=== PATIENT | female | born 1970 | race Caucasian/White ===

== ENCOUNTER → 2019-04-18 | Outpatient (REF) | payer MEDICAID | LOC: M LAB REF 17:27 | PROVIDERS: ATTEND Nurse Practitioner Family | DX: Z53.9 Procedure and treatment not carried out, unspecified reason (principal) ==

== ENCOUNTER → 2019-04-22 | Outpatient (REF) | payer MEDICAID ==
[2019-04-22 17:15] LABS: ALBUMIN 3.3 GM/DL (3.2-5.2); ALT/SGPT 42 U/L (12-78); BILIRUBIN,TOTAL 0.4 MG/DL (0.2-1.0); BLOOD UREA NITROGEN 7 MG/DL (7-18); CALCIUM LEVEL 8.7 MG/DL (8.5-10.1); CARBON DIOXIDE LEVEL 29 MEQ/L (21-32); CHLORIDE LEVEL 104 MEQ/L (98-107); CHOLESTEROL LEVEL 181 MG/DL (<200); CHOLESTEROL RISK RATIO 5.838 (<5); CREATININE FOR GFR 0.68 MG/DL (0.55-1.30); FREE T4 1.19 NG/DL (0.76-1.46); GLOMERULAR FILTRATION RATE > 60.0 (>58); GLUCOSE, FASTING 268 MG/DL (70-100); HDL CHOLESTEROL 31 MG/DL (>40); LDL CHOLESTEROL 114 MG/DL (<100); NON-HDL-C 150 MG/DL; SODIUM LEVEL 138 MEQ/L (136-145); TOTAL PROTEIN 7.5 GM/DL (6.4-8.2); TRIGLYCERIDES LEVEL 180 MG/DL (<150)
[2019-04-22 17:18] LABS: TOTAL 25(OH) VITAMIN D 8.9 NG/ML (30.0-100.0)
[2019-04-22 17:28] LABS: HEMOGLOBIN A1c 9.9 %
[2019-04-22 17:37] LABS: BASO # 0.1 10^3/uL (0.0-0.2); BASO % 0.7 % (0.0-1.0); HEMATOCRIT 40.8 % (36.0-47.0); HEMOGLOBIN 11.8 g/dl (12.0-15.5); LYMPH % 20.2 % (24.0-44.0); MEAN CORPUSCULAR HEMOGLOBIN 23.1 pg (27.0-33.0); MEAN CORPUSCULAR HGB CONC 28.9 g/dl (32.0-36.5); MONO # 0.4 10^3/uL (0.0-0.8); MONO % 4.4 % (0.0-5.0); NEUTROPHILS # 7.3 10^3/uL (1.5-8.5); NEUTROPHILS % 74.2 % (36.0-66.0); PLATELET COUNT, AUTOMATED 243 10^3/uL (150-450); WHITE BLOOD COUNT 9.8 10^3/uL (4.0-10.0)
== END ==
LOC: M LAB REF 16:23
PROVIDERS: ATTEND Nurse Practitioner Family
DX: Z13.9 Encounter for screening, unspecified (principal); I10 Essential (primary) hypertension; E11.9 Type 2 diabetes mellitus without complications

== ENCOUNTER 2019-04-30 19:25 | Emergency (ER) | payer MEDICAID ==
[~2019-04-30] VITALS: Ht 160 cm; Wt 122.7 kg
[2019-04-30] MEDS ORDERED: AMLO10CA22 PO (19:33)
[2019-04-30] MEDS ORDERED: METO37.5 PO (19:33)
[2019-04-30] MEDS ORDERED: ISOS30TAB PO (19:33)
[2019-04-30] MEDS ORDERED: SPIR50TA4 PO (19:33)
[2019-04-30] MEDS ORDERED: ASPI-1 PO (19:33)
[2019-04-30] MEDS ORDERED: METF10004 PO (19:33)
[2019-04-30] MEDS ORDERED: NS 1,000 ML IV ONE (20:00)
[2019-04-30] MEDS ORDERED: ONDANSETRON 4MG/2ML VIAL (J2405) As Ordered ONE (20:12)
[2019-04-30] MEDS ORDERED: ONDANSETRON 4MG/2ML VIAL (J2405) IV ONE (20:15)
[2019-04-30 20:33] LABS: BASO % 0.7 % (0.0-1.0); HEMATOCRIT 40.3 % (36.0-47.0); HEMOGLOBIN 12.3 g/dl (12.0-15.5); LYMPH # 0.6 10^3/uL (1.5-5.0); LYMPH % 11.1 % (24.0-44.0); MEAN CORPUSCULAR HEMOGLOBIN 23.4 pg (27.0-33.0); MEAN CORPUSCULAR HGB CONC 30.5 g/dl (32.0-36.5); MEAN CORPUSCULAR VOLUME 76.6 fl (80.0-96.0); MONO # 0.2 10^3/uL (0.0-0.8); MONO % 3.7 % (0.0-5.0); NEUTROPHILS # 4.7 10^3/uL (1.5-8.5); NEUTROPHILS % 82.7 % (36.0-66.0); PLATELET COUNT, AUTOMATED 178 10^3/uL (150-450); RED BLOOD COUNT 5.26 10^6/uL (4.00-5.40); WHITE BLOOD COUNT 5.7 10^3/uL (4.0-10.0)
[2019-04-30 20:57] LABS: ALBUMIN 3.1 GM/DL (3.2-5.2); ALT/SGPT 47 U/L (12-78); BILIRUBIN,DIRECT 0.2 MG/DL (0.0-0.2); BILIRUBIN,TOTAL 0.7 MG/DL (0.2-1.0); BLOOD UREA NITROGEN 12 MG/DL (7-18); CALCIUM LEVEL 8.5 MG/DL (8.5-10.1); CARBON DIOXIDE LEVEL 27 MEQ/L (21-32); CHLORIDE LEVEL 98 MEQ/L (98-107); CREATININE FOR GFR 0.84 MG/DL (0.55-1.30); GLOMERULAR FILTRATION RATE > 60.0 (>58); GLUCOSE, FASTING 313 MG/DL (70-100); LIPASE 139 U/L (73-393); POTASSIUM SERUM 3.4 MEQ/L (3.5-5.1); SODIUM LEVEL 134 MEQ/L (136-145); TOTAL PROTEIN 6.9 GM/DL (6.4-8.2)
[2019-04-30] MEDS ORDERED: ISOVUE-370 76% 100ML VIAL (Q9967) As Ordered ONE (20:59)
[2019-04-30] MEDS ORDERED: DICYCLOMINE 10 MG CAP PO ONE (21:00)
[2019-04-30] MEDS ORDERED: KETOROLAC 30 MG/ML VIAL (J1885) IV ONE (22:00)
[2019-04-30] MEDS ORDERED: diphenhydrAMINE INJ 50MG/ML VIAL (J1200) IV STA (22:49)
[2019-04-30] MEDS ORDERED: METOCLOPRAMIDE INJ 10MG/2ML VIAL (J2765) IV ONE (23:00)
[2019-04-30] MEDS ORDERED: MORPHINE 4 MG/ML 1ML VIAL/SYRINGE (J2270) IV ONE (23:00)
[2019-04-30] MEDS ORDERED: MACR100C43 PO (23:45)
[2019-05-01] VITALS: BP 138/82
[2019-05-01] MEDS ORDERED: NITROFURANTOIN (MACROBID) 100 MG CAP PO ONE
[2019-05-01] MEDS ORDERED: ACETAMINOPHEN 325 MG TAB PO ONE
--- NOTE | 2019-05-01 08:41 | REP ---
Clinical: Lower abdominal pain. Technique: Axial contrast enhanced images from the lung bases to the pubic symphysis using 100 ml Isovue 370 intravenous contrast material with coronal and sagittal re-formations. Findings: Lung bases are clear. Visualized heart and pericardium normal. Diffuse fatty infiltration to the liver noted without focal hepatic lesion. Spleen, pancreas, right adrenal gland and left kidney are essentially normal. Cholelithiasis noted. 1.6 cm left adrenal nodule is nonspecific by current examination. 2 cm hypodense lesion in the right renal pelvis may reflect dilated wilfredo or complex cyst/lesion. The enteric system is without obstruction or acute inflammatory process. Normal terminal ileum and appendix are identified in the right lower quadrant. Few sigmoid diverticula noted without acute diverticulitis. Pelvis demonstrates normal bladder and age-appropriate uterus/adnexa with bilateral ovarian cysts likely physiologic. No ascites. No free air. No adenopathy. Abdominal aorta without aneurysm or dissection. 2 cm periumbilical fat-containing hernia noted. Musculoskeletal structures demonstrate degenerative changes without significant focal osseous abnormality. Impression: 1. Cystic changes to the bilateral ovaries likely physiologic and possibly related to patient's symptoms. 2. 1.6 cm left adrenal nodule may represent atypical adenoma. Consider outpatient pre and postcontrast CT of the abdomen or MRI. 3. 2 cm hypodense lesion within the right kidney likely complex cyst may be evaluated by outpatient ultrasound. 4. Few scattered colonic diverticula without acute diverticulitis. 5. 2 cm fat containing periumbilical hernia. 6. Cholelithiasis. 7. Hepatic steatosis. Electronically Signed by Leonardo Lua MD 05/01/2019 08:34 A
--- NOTE | 2019-05-02 13:43 | ED PDOC ---
Post-Departure Follow-Up lydia valdez faxed formal report of ct abd/p for fu samg Jarek Stone MD May 02, 2019 13:43
== END 2019-05-01 00:10 | disposition home or self-care (01) ==
LOC: M ED 19:25
DX: R51 Headache (principal); N93.9 Abnormal uterine and vaginal bleeding, unspecified; N39.0 Urinary tract infection, site not specified; E11.9 Type 2 diabetes mellitus without complications; I10 Essential (primary) hypertension; E78.9 Disorder of lipoprotein metabolism, unspecified; I25.2 Old myocardial infarction; E66.8 Other obesity; Z79.899 Other long term (current) drug therapy; Z79.84 Long term (current) use of oral hypoglycemic drugs; Z79.82 Long term (current) use of aspirin
CPT/HCPCS: 36415; 74177; 80048; 80076; 81001; 83690; 85025; 87086; 96361; 96374; 96375; 99284; J1200; J1885; J2270; J2405; J2765; Q9967

== ENCOUNTER → 2019-05-11 | Outpatient (REF) | payer OTHER ==
[~2019-05-11] MED LIST: AMLO10CA22 PO; ASPI-1 PO; ISOS30TAB PO; MACR100C43 PO; METF10004 PO; METO37.5 PO; SPIR50TA4 PO
== END ==
LOC: M LAB REF 16:13
PROVIDERS: ATTEND Physician Assistant
DX: R10.9 Unspecified abdominal pain (principal)

== ENCOUNTER → 2019-08-17 | Outpatient (CLI) | payer OTHER ==
[~2019-08-17] MED LIST changes: +ISOVUE-370 76% 100ML VIAL (Q9967) As Ordered ONE
--- NOTE | 2019-08-17 17:58 | REP ---
Clinical: Left adrenal lesion. Technique: Axial precontrast, contrast enhanced, and 50-minute delayed images of the abdomen using 100 ml Isovue 370 intravenous contrast material with coronal and sagittal re-formations. Comparison: 04/13/2019. Findings: 1.6 cm low density left adrenal lesion which demonstrates enhancement and washout characteristics consistent with benign adrenal adenoma. Liver, spleen, pancreas, right adrenal gland and bilateral kidneys are normal. Evidence for cholelithiasis without acute cholecystitis. Visualized portions of the enteric system is normal. No ascites, inflammatory changes, adenopathy, or free air noted in the abdomen and visualized pelvis. Abdominal aorta without aneurysm or dissection. Musculoskeletal structures demonstrate degenerative changes to the visualized thoracolumbar spine. Impression: 1. 1.6 cm left adrenal lesion consistent with benign adenoma. 2. Cholelithiasis. Electronically Signed by Leonardo Lua MD 08/17/2019 05:49 P
== END ==
LOC: M RAD 08:22
PROVIDERS: ATTEND Internal Medicine Cardiovascular Disease
DX: D44.12 Neoplasm of uncertain behavior of left adrenal gland (principal); K80.20 Calculus of gallbladder without cholecystitis without obstruction
CPT/HCPCS: 74170; Q9967

== ENCOUNTER → 2020-03-02 | Outpatient (REF) | payer OTHER, MEDICAID ==
[~2020-03-02] MED LIST changes: -ISOVUE-370 76% 100ML VIAL (Q9967) As Ordered ONE
[2020-03-02 17:13] LABS: BASO # 0.1 10^3/uL (0.0-0.2); BASO % 0.7 % (0.0-1.0); HEMATOCRIT 40.6 % (36.0-47.0); HEMOGLOBIN 12.7 g/dl (12.0-15.5); LYMPH # 3.8 10^3/uL (1.5-5.0); LYMPH % 28.7 % (24.0-44.0); MEAN CORPUSCULAR HGB CONC 31.3 g/dl (32.0-36.5); MEAN CORPUSCULAR VOLUME 86.4 fl (80.0-96.0); MONO # 0.7 10^3/uL (0.0-0.8); MONO % 4.9 % (0.0-5.0); NEUTROPHILS # 8.6 10^3/uL (1.5-8.5); NEUTROPHILS % 64.9 % (36.0-66.0); PLATELET COUNT, AUTOMATED 248 10^3/uL (150-450); WHITE BLOOD COUNT 13.3 10^3/uL (4.0-10.0)
[2020-03-02 17:29] LABS: ALBUMIN 3.3 GM/DL (3.2-5.2); ALT/SGPT 18 U/L (12-78); BILIRUBIN,TOTAL 0.3 MG/DL (0.2-1.0); BLOOD UREA NITROGEN 16 MG/DL (7-18); CALCIUM LEVEL 8.4 MG/DL (8.5-10.1); CARBON DIOXIDE LEVEL 29 MEQ/L (21-32); CHLORIDE LEVEL 104 MEQ/L (98-107); CHOLESTEROL LEVEL 127 MG/DL (<200); CHOLESTEROL RISK RATIO 4.096 (<5); CREATININE FOR GFR 0.74 MG/DL (0.55-1.30); FREE T4 1.13 NG/DL (0.76-1.46); GLOMERULAR FILTRATION RATE > 60.0 (>58); GLUCOSE, FASTING 264 MG/DL (70-100); HDL CHOLESTEROL 31 MG/DL (>40); LDL CHOLESTEROL 74 MG/DL (<100); MAGNESIUM LEVEL 2.2 MG/DL (1.8-2.4); NON-HDL-C 96 MG/DL; POTASSIUM SERUM 3.9 MEQ/L (3.5-5.1); SODIUM LEVEL 139 MEQ/L (136-145); TOTAL PROTEIN 6.7 GM/DL (6.4-8.2); TRIGLYCERIDES LEVEL 110 MG/DL (<150)
[2020-03-02 17:41] LABS: HEMOGLOBIN A1c 8.6 %
[2020-03-02 18:06] LABS: MAU/CREAT RATIO 12.3 MCG/MG (0.0-30.0)
== END ==
LOC: M LAB REF 15:49
PROVIDERS: ATTEND Physician Assistant
DX: E66.01 Morbid (severe) obesity due to excess calories (principal); Z68.42 Body mass index [BMI] 45.0-49.9, adult; E78.5 Hyperlipidemia, unspecified; E55.9 Vitamin D deficiency, unspecified; E11.9 Type 2 diabetes mellitus without complications; I10 Essential (primary) hypertension

== ENCOUNTER → 2020-06-21 | Outpatient (REF) | payer OTHER, MEDICAID ==
[2020-06-21 16:30] LABS: HEMATOCRIT 44.7 % (36.0-47.0); HEMOGLOBIN 14.4 g/dl (12.0-15.5); MEAN CORPUSCULAR HEMOGLOBIN 27.6 pg (27.0-33.0); MEAN CORPUSCULAR HGB CONC 32.2 g/dl (32.0-36.5); MEAN CORPUSCULAR VOLUME 85.8 fl (80.0-96.0); PLATELET COUNT, AUTOMATED 232 10^3/uL (150-450); RED BLOOD COUNT 5.21 10^6/uL (4.00-5.40); WHITE BLOOD COUNT 11.9 10^3/uL (4.0-10.0)
[2020-06-21 16:35] LABS: ALBUMIN 3.6 GM/DL (3.2-5.2); ALT/SGPT 25 U/L (12-78); BILIRUBIN,TOTAL 0.7 MG/DL (0.2-1.0); BLOOD UREA NITROGEN 12 MG/DL (7-18); CALCIUM LEVEL 9.1 MG/DL (8.5-10.1); CARBON DIOXIDE LEVEL 29 MEQ/L (21-32); CHLORIDE LEVEL 101 MEQ/L (98-107); CHOLESTEROL LEVEL 139 MG/DL (<200); CHOLESTEROL RISK RATIO 4.964 (<5); CREATININE FOR GFR 0.64 MG/DL (0.55-1.30); GLOMERULAR FILTRATION RATE > 60.0 (>58); GLUCOSE, FASTING 266 MG/DL (70-100); HDL CHOLESTEROL 28 MG/DL (>40); LDL CHOLESTEROL 65 MG/DL (<100); NON-HDL-C 111 MG/DL; POTASSIUM SERUM 4.1 MEQ/L (3.5-5.1); SODIUM LEVEL 135 MEQ/L (136-145); TOTAL PROTEIN 7.1 GM/DL (6.4-8.2); TRIGLYCERIDES LEVEL 230 MG/DL (<150)
[2020-06-21 16:49] LABS: HEMOGLOBIN A1c 9.6 %
== END ==
LOC: M LAB REF 15:43
PROVIDERS: ATTEND Physician Assistant
DX: E11.9 Type 2 diabetes mellitus without complications (principal)

== ENCOUNTER → 2020-07-26 | Outpatient (REF) | payer OTHER, MEDICAID ==
[2020-07-26 17:11] LABS: MALB URINE SIEMENS 20.6 MG/L; MAU/CREAT RATIO 12.9 MCG/MG (0.0-30.0)
== END ==
LOC: M LAB REF 15:52
PROVIDERS: ATTEND Family Medicine Addiction Medicine
DX: E11.9 Type 2 diabetes mellitus without complications (principal)

== ENCOUNTER → 2020-07-26 | Outpatient (REF) | payer OTHER, MEDICAID ==
[2020-07-26 16:52] LABS: HEMOGLOBIN A1c 9.6 %
[2020-07-26 17:05] LABS: ALBUMIN 3.4 GM/DL (3.2-5.2); ALT/SGPT 22 U/L (12-78); BILIRUBIN,TOTAL 0.5 MG/DL (0.2-1.0); BLOOD UREA NITROGEN 12 MG/DL (7-18); CALCIUM LEVEL 8.6 MG/DL (8.5-10.1); CARBON DIOXIDE LEVEL 29 MEQ/L (21-32); CHLORIDE LEVEL 103 MEQ/L (98-107); CHOLESTEROL LEVEL 127 MG/DL (<200); CHOLESTEROL RISK RATIO 4.535 (<5); CREATININE FOR GFR 0.72 MG/DL (0.55-1.30); GLOMERULAR FILTRATION RATE > 60.0 (>51); GLUCOSE, FASTING 303 MG/DL (70-100); HDL CHOLESTEROL 28 MG/DL (>40); LDL CHOLESTEROL 69 MG/DL (<100); NON-HDL-C 99 MG/DL; POTASSIUM SERUM 4.3 MEQ/L (3.5-5.1); SODIUM LEVEL 137 MEQ/L (136-145); TRIGLYCERIDES LEVEL 149 MG/DL (<150)
== END ==
LOC: M LAB REF 15:44
PROVIDERS: ATTEND Family Medicine Addiction Medicine
DX: E11.9 Type 2 diabetes mellitus without complications (principal)

== ENCOUNTER → 2021-01-02 | Outpatient (REF) | payer OTHER, MEDICAID | LOC: M LAB REF 16:33 | PROVIDERS: ATTEND Physician Assistant | DX: Z12.4 Encounter for screening for malignant neoplasm of cervix (principal) ==

== ENCOUNTER → 2021-03-21 | Outpatient (REF) | payer OTHER ==
[2021-03-21 17:30] LABS: APPEARANCE, URINE CLEAR (CLEAR); BACTERIA, URINE AUTO NEGATIVE (NEGATIVE); BILIRUBIN, URINE AUTO NEGATIVE (NEGATIVE); BLOOD, URINE BLOOD NEGATIVE (NEGATIVE); COLOR, URINE STRAW (YELLOW); GLUCOSE, URINE (UA) AUTO 3+ mg/dL (NEGATIVE); KETONE, URINE AUTO NEGATIVE (NEGATIVE); LEUKOCYTE ESTERASE, URINE AUTO NEGATIVE (NEGATIVE); NITRITE, URINE AUTO NEGATIVE (NEGATIVE); PROTEIN, URINE AUTO NEGATIVE (NEGATIVE); RBC, URINE AUTO 0 /HPF (0-3); SPECIFIC GRAVITY URINE AUTO 1.025 (1.002-1.035); SQUAMOUS EPITHELIAL CELL UR AU 3 /HPF (0-6); UROBILINOGEN, URINE AUTO 0.2 mg/dL (0.0-2.0); WBC, URINE AUTO 0 /HPF (0-3)
[2021-03-21 18:03] LABS: CREATININE,RANDOM URINE 28.7 MG/DL; TOTAL PROTEIN,RANDOM URINE 12.1 MG/DL (0.0-12.0)
== END ==
LOC: M SFHCRHEU 16:27
PROVIDERS: ATTEND Internal Medicine
DX: M06.4 Inflammatory polyarthropathy (principal)

== ENCOUNTER → 2021-03-22 | Outpatient (REF) | payer OTHER ==
[2021-03-22 12:27] LABS: BASO # 0.1 10^3/uL (0.0-0.2); BASO % 0.7 % (0.0-1.0); HEMATOCRIT 47.4 % (36.0-47.0); HEMOGLOBIN 15.1 g/dl (12.0-15.5); LYMPH # 2.6 10^3/uL (1.5-5.0); LYMPH % 20.8 % (24.0-44.0); MEAN CORPUSCULAR HEMOGLOBIN 29.2 pg (27.0-33.0); MEAN CORPUSCULAR HGB CONC 31.9 g/dl (32.0-36.5); MEAN CORPUSCULAR VOLUME 91.7 fl (80.0-96.0); MONO # 0.7 10^3/uL (0.0-0.8); MONO % 5.8 % (2.0-8.0); NEUTROPHILS % 72.1 % (36.0-66.0); PLATELET COUNT, AUTOMATED 225 10^3/uL (150-450); RED BLOOD COUNT 5.17 10^6/uL (4.00-5.40); WHITE BLOOD COUNT 12.4 10^3/uL (4.0-10.0)
[2021-03-22 12:56] LABS: ALBUMIN 3.8 GM/DL (3.2-5.2); BILIRUBIN,DIRECT 0.1 MG/DL (0.0-0.2); BILIRUBIN,TOTAL 0.5 MG/DL (0.2-1.0); MAGNESIUM LEVEL 2.1 MG/DL (1.8-2.4); PHOSPHORUS LEVEL 3.7 MG/DL (2.5-4.9); TOTAL PROTEIN 7.6 GM/DL (6.4-8.2)
[2021-03-22 13:01] LABS: TOTAL 25(OH) VITAMIN D 23.6 NG/ML (30.0-100.0)
[2021-03-25 11:02] LABS: DRVV SCREEN 41.7 SEC
[2021-03-25 11:04] LABS: PTT LUPUS TYPE ANTICOAG SCREEN 1.1 (0-1.2)
== END ==
LOC: M SFHCRHEU 07:32
PROVIDERS: ATTEND Internal Medicine
DX: M79.10 Myalgia, unspecified site (principal); M06.4 Inflammatory polyarthropathy; M54.9 Dorsalgia, unspecified

== ENCOUNTER → 2021-04-23 | Outpatient (CLI) | payer OTHER ==
--- NOTE | 2021-04-24 14:49 | SLEEPHOME ---
DATE: 04/23/2021 ORDERED BY: Dr. Xin Gonzalez, Rheumatology Diagnostic home sleep testing was performed due to concern for the obstructive sleep apnea syndrome in this patient with a history of chronic fatigue. For testing, a NOX T3 respiratory monitoring device was used. Continuous record was made of pulse, oxygen saturation, air flow, chest and abdominal strain, and body position. There was 6 hours and 22 minutes of data reviewed. During this interval 68 respiratory events were identified of 10 seconds in duration or greater for a respiratory event index of 10.8. The events were primarily obstructive. Baseline saturation 93%. Saturations fell to 75%. Baseline pulse rate 68. Pulse rate rated 31-102. Testing was performed in both the supine and nonsupine positions. IMPRESSION: Abnormal home sleep testing with repetitive respiratory events and oxygen desaturations to 72% with a respiratory event index of 10.8 is consistent with the obstructive sleep apnea syndrome. RECOMMENDATION: The patient should be encouraged to undergo formal sleep evaluation.
== END ==
LOC: M SLEEP HO 09:45
PROVIDERS: ATTEND Internal Medicine
DX: R53.82 Chronic fatigue, unspecified (principal)

== ENCOUNTER → 2021-04-26 | Outpatient (CLI) | payer OTHER ==
--- NOTE | 2021-04-26 09:05 | REP ---
INDICATION: DORSALGIA, UNSPECIFIED. COMPARISON: None. TECHNIQUE: Single AP view of the pelvis FINDINGS: Osseous structures, joint spaces and surrounding soft tissues are relatively symmetric and age-appropriate/normal. No overt arthritic or degenerative changes are appreciated. No evidence for acute or healed injury. IMPRESSION: Age-appropriate pelvic radiograph. <Electronically signed by Leonardo Lua > 04/26/21 0902
--- NOTE | 2021-04-26 09:05 | REP ---
INDICATION: DORSALGIA, UNSPECIFIED COMPARISON: None. TECHNIQUE: AP, lateral, bilateral oblique views right and left ankle. FINDINGS: Symmetric osteopenia and mild degenerative changes include subtle cortical irregularity at the medial and lateral malleoli. Ankle mortise appears intact and normal bilaterally. Lateral views demonstrate small calcaneal heel spurs (left greater than right). IMPRESSION: Relatively symmetric osteopenia and mild degenerative changes. <Electronically signed by Leonardo Lua > 04/26/21 0905
--- NOTE | 2021-04-26 09:08 | REP ---
INDICATION: DORSALGIA, UNSPECIFIED COMPARISON: None. TECHNIQUE: AP, lateral, bilateral oblique views right and left hand. FINDINGS: Osseous structures, joint spaces, and surrounding soft tissues are relatively symmetric bilaterally and age-appropriate. No significant overt osteoarthritic or inflammatory arthritic changes are appreciated. No evidence for acute or healed injury. IMPRESSION: Symmetric age-appropriate bilateral hand radiograph series. <Electronically signed by Leonardo Lua > 04/26/21 09
--- NOTE | 2021-04-26 09:09 | REP ---
INDICATION: DORSALGIA, UNSPECIFIED COMPARISON: None. TECHNIQUE: AP, lateral, bilateral oblique views right and left wrist. FINDINGS: The carpal bones, surrounding osseous structures, soft tissues, and joint spaces are bilaterally symmetric and age-appropriate/normal. No overt osteoarthritic or inflammatory arthritic changes are appreciated. No evidence for acute or healed injury. IMPRESSION: Normal age-appropriate bilateral wrist series. <Electronically signed by Leonardo Lua > 04/26/21 0999
== END ==
LOC: M RAD 08:29
PROVIDERS: ATTEND Internal Medicine
DX: M54.9 Dorsalgia, unspecified (principal); M06.4 Inflammatory polyarthropathy; M85.871 Other specified disorders of bone density and structure, right ankle and foot

== ENCOUNTER → 2021-04-30 | Outpatient (CLI) | payer OTHER ==
[~2021-04-30] MED LIST changes: -AMLO10CA22 PO; +AMLO10CA30 PO
== END ==
LOC: M WHC 12:52
PROVIDERS: ATTEND Family Medicine Addiction Medicine
DX: R92.2 Inconclusive mammogram (principal)

== ENCOUNTER → 2021-05-21 | Outpatient (CLI) | payer OTHER ==
[~2021-05-21] MED LIST changes: +AMLO10CA22 PO; -AMLO10CA30 PO
--- NOTE | 2021-05-21 16:11 | REP ---
INDICATION: B/L ADD VIEWS. COMPARISON: 04/30/2021. TECHNIQUE: Bilateral mammogram with tomosynthesis. Bilateral breast ultrasound. FINDINGS: Moderate heterogeneous fibroglandular tissue is present bilaterally. Four round nodular opacities are present in each breast, all demonstrating fairly well-defined margins. On the right there is a 12 o'clock nodule 1.2 cm in diameter, a far lateral nodule 1.5 cm, and 2 medial nodules 1.6 cm and 0.6 cm in diameter. On the left a far lateral nodule measures approximately 1.5 cm. There are 3 subcentimeter nodules medially in the left breast. There are no suspicious clusters of microcalcifications. Bilateral breast ultrasound is performed. At 12 o'clock right breast there is a hypoechoic solid-appearing nodule 9 mm in diameter. At 1 o'clock there is a hypoechoic solid-appearing nodule 1.2 cm in diameter. A 5 o'clock a cystic structure measures 9 x 3 x 6 mm, possibly a dilated duct. At 9 o'clock a hypoechoic solid-appearing nodule measures 1.5 x 0.8 x 1.6 cm. On the left a solid-appearing nodule at 1 o'clock measures 1.4 cm in diameter. At 7 o'clock a nodule measures 5 mm. At 9 o'clock there appears to be a dilated duct containing debris. At 10 o'clock a hypoechoic nodule measures 7 x 4 x 6 mm. Please note that all of the nodules are wider than tall with their long axes parallel to the skin. None demonstrate significant distal acoustic shadowing. The Volpara volumetric breast density pattern is C. IMPRESSION: BIRADS/ACR category 3, probably benign. Four nodules identified mammographically in each breast. Three solid nodules are seen in each breast sonographically, all demonstrating probably benign characteristics. A few demonstrate thin internal echogenic septations compatible with fibroadenomas. They are all wider than tall with their long axes parallel to the skin, with no distal acoustic shadowing, benign features. This patient's Tyrer-zick lifetime breast cancer risk assessment score is 12.7%. This mammogram was interpreted with the aid of an FDA-approved computer-aided detection system. The patient letter being requested is M3. RECOMMENDATION: Recommend six-month follow-up mammogram and bilateral breast ultrasound. <Electronically signed by Cuate Alejandra > 05/21/21 [id number]
== END ==
LOC: M WHC 08:03
PROVIDERS: ATTEND Family Medicine Addiction Medicine
DX: R92.2 Inconclusive mammogram (principal)
CPT/HCPCS: 76642; 77066; G0279

== ENCOUNTER → 2021-08-16 | Outpatient (REF) | payer OTHER ==
[~2021-08-16] MED LIST changes: -AMLO10CA22 PO; +AMLO10CA30 PO
[2021-08-16 17:49] LABS: C REACTIVE PROTEIN QUANTITATIV 5.38 MG/DL (0.00-0.30)
[2021-08-16 18:01] LABS: TOTAL 25(OH) VITAMIN D 44.6 NG/ML (30.0-100.0)
== END ==
LOC: M SFHCRHEU 13:29
PROVIDERS: ATTEND Internal Medicine
DX: E55.9 Vitamin D deficiency, unspecified (principal); M35.9 Systemic involvement of connective tissue, unspecified; M06.4 Inflammatory polyarthropathy

== ENCOUNTER → 2021-12-16 | Outpatient (CLI) | payer OTHER | LOC: M WHC 12:34 | PROVIDERS: ATTEND Family Medicine Addiction Medicine | DX: R92.8 Other abnormal and inconclusive findings on diagnostic imaging of breast (principal); N60.02 Solitary cyst of left breast; N60.01 Solitary cyst of right breast; N63.21 Unspecified lump in the left breast, upper outer quadrant; N63.11 Unspecified lump in the right breast, upper outer quadrant ==

== ENCOUNTER → 2022-01-17 | Outpatient (REF) | payer OTHER ==
[2022-01-17 16:45] LABS: BASO # 0.1 10^3/uL (0.0-0.2); BASO % 0.7 % (0.0-1.0); EOS % 0.1 % (0.0-3.0); HEMOGLOBIN 14.2 g/dl (12.0-15.5); LYMPH # 2.6 10^3/uL (1.5-5.0); LYMPH % 21.3 % (24.0-44.0); MEAN CORPUSCULAR HEMOGLOBIN 28.1 pg (27.0-33.0); MEAN CORPUSCULAR HGB CONC 31.6 g/dl (32.0-36.5); MEAN CORPUSCULAR VOLUME 88.9 fl (80.0-96.0); MONO # 0.6 10^3/uL (0.0-0.8); MONO % 4.9 % (2.0-8.0); NEUTROPHILS # 8.9 10^3/uL (1.5-8.5); NEUTROPHILS % 72.3 % (36.0-66.0); PLATELET COUNT, AUTOMATED 226 10^3/uL (150-450); RED BLOOD COUNT 5.06 10^6/uL (4.00-5.40); WHITE BLOOD COUNT 12.3 10^3/uL (4.0-10.0)
[2022-01-17 17:15] LABS: CREATININE,RANDOM URINE 50.2 MG/DL; TOTAL PROTEIN,RANDOM URINE 10.2 MG/DL (0.0-12.0)
[2022-01-17 17:18] LABS: ALBUMIN 3.9 GM/DL (3.2-5.2); ALT/SGPT 26 U/L (12-78); BILIRUBIN,DIRECT 0.3 MG/DL (0.0-0.2); BILIRUBIN,TOTAL 0.5 MG/DL (0.2-1.0); BLOOD UREA NITROGEN 11 MG/DL (7-18); CALCIUM LEVEL 8.8 MG/DL (8.5-10.1); CARBON DIOXIDE LEVEL 26 MEQ/L (21-32); CHLORIDE LEVEL 106 MEQ/L (98-107); COMPLEMENT C3 151 MG/DL (90-180); COMPLEMENT C4 28 MG/DL (10-40); CREATININE FOR GFR 0.71 MG/DL (0.55-1.30); GLOMERULAR FILTRATION RATE > 60.0 (>51); GLUCOSE, FASTING 135 MG/DL (70-100); POTASSIUM SERUM 3.8 MEQ/L (3.5-5.1); SODIUM LEVEL 136 MEQ/L (136-145); TOTAL PROTEIN 7.3 GM/DL (6.4-8.2)
[2022-01-17 17:44] LABS: ERYTHROCYTE SEDIMENTATION RATE 16 mm/hr (0-30)
[2022-01-17 17:59] LABS: APPEARANCE, URINE MANUAL CLEAR (CLEAR); COLOR, URINE MANUAL LT YELLOW (YELLOW)
[2022-01-17 18:10] LABS: BILIRUBIN, URINE MANUAL NEGATIVE (NEGATIVE); BLOOD URINE MANUAL NEGATIVE (NEGATIVE); GLUCOSE, URINE (UA) MANUAL 4+(1000 MG/DL) mg/dL (NEGATIVE); KETONE, URINE MANUAL NEGATIVE (NEGATIVE); LEUKOCYTE ESTERASE, URINE MAN NEGATIVE (NEGATIVE); NITRITE, URINE MANUAL NEGATIVE (NEGATIVE); PROTEIN, URINE MANUAL NEGATIVE (NEGATIVE); UROBILINOGEN, URINE MANUAL NORMAL (NORMAL)
== END ==
LOC: M SFHCRHEU 12:39
PROVIDERS: ATTEND Internal Medicine
DX: M06.4 Inflammatory polyarthropathy (principal)

== ENCOUNTER → 2022-03-28 | Outpatient (CLI) | payer OTHER | LOC: M RAD 07:22 | PROVIDERS: ATTEND Internal Medicine | DX: M79.89 Other specified soft tissue disorders (principal); Z53.9 Procedure and treatment not carried out, unspecified reason ==

== ENCOUNTER → 2022-04-22 | Outpatient (REF) | payer OTHER, MEDICAID ==
[2022-04-22 14:01] LABS: ALBUMIN 3.7 G/DL (3.2-5.2); ALT/SGPT 18 U/L (7.0-40); BILIRUBIN,TOTAL 0.5 MG/DL (0.3-1.2); BLOOD UREA NITROGEN 14 MG/DL (9-23); CARBON DIOXIDE LEVEL 25 MMOL/L (20-31); CHLORIDE LEVEL 103 MMOL/L (98-107); CHOLESTEROL LEVEL 113 MG/DL (<200); CHOLESTEROL RISK RATIO 3.74 (<5); CREATININE FOR GFR 0.51 MG/DL (0.55-1.30); GLOMERULAR FILTRATION RATE > 60.0 (>51); GLUCOSE, FASTING 260 MG/DL (60-100); HDL CHOLESTEROL 30.2 MG/DL (>40); LDL CHOLESTEROL 59.2 MG/DL (<100); NON-HDL-C 83 MG/DL; POTASSIUM SERUM 4.5 MMOL/L (3.5-5.1); SODIUM LEVEL 138 MMOL/L (136-145); TOTAL PROTEIN 6.7 G/DL (5.7-8.2); TRIGLYCERIDES LEVEL 118 MG/DL (<150)
[2022-04-22 14:27] LABS: HEMOGLOBIN A1c 8.3 % (4.0-6.0)
== END ==
LOC: M LAB REF 12:40
PROVIDERS: ATTEND Family Medicine Addiction Medicine
DX: E11.9 Type 2 diabetes mellitus without complications (principal)

== ENCOUNTER → 2022-07-30 | Outpatient (REF) | payer OTHER, MEDICAID ==
[2022-07-30 11:18] LABS: CREATININE, URINE 130.7 MG/DL; MAU/CREAT RATIO 8.4 MCG/MG (0.0-30.0)
[2022-07-30 13:25] LABS: ALBUMIN 3.6 G/DL (3.2-5.2); ALKALINE PHOSPHATASE 91 U/L (46-116); ALT/SGPT 20 U/L (7.0-40); AST/SGOT 14 U/L (<34); BILIRUBIN,TOTAL 0.6 MG/DL (0.3-1.2); BLOOD UREA NITROGEN 18 MG/DL (9-23); CARBON DIOXIDE LEVEL 27 MMOL/L (20-31); CHLORIDE LEVEL 104 MMOL/L (98-107); CHOLESTEROL LEVEL 167 MG/DL (<200); CHOLESTEROL RISK RATIO 6.32 (<5); CREATININE FOR GFR 0.59 MG/DL (0.55-1.30); GLOMERULAR FILTRATION RATE > 60.0 (>51); GLUCOSE, FASTING 190 MG/DL (60-100); HDL CHOLESTEROL 26.4 MG/DL (>40); NON-HDL-C 141 MG/DL; POTASSIUM SERUM 4.1 MMOL/L (3.5-5.1); SODIUM LEVEL 139 MMOL/L (136-145); THYROID STIMULATING HORMONE 4.428 uIU/ML (0.55-4.78); TOTAL PROTEIN 6.6 G/DL (5.7-8.2); TRIGLYCERIDES LEVEL 213 MG/DL (<150)
== END ==
LOC: M LAB REF 10:11
PROVIDERS: ATTEND Family Medicine Addiction Medicine
DX: E11.9 Type 2 diabetes mellitus without complications (principal)

== ENCOUNTER → 2022-08-07 | Outpatient (CLI) | payer OTHER | LOC: M RAD 11:55 | PROVIDERS: ATTEND Internal Medicine | DX: M06.4 Inflammatory polyarthropathy (principal) ==

== ENCOUNTER → 2022-10-17 | Outpatient (CLI) | payer OTHER ==
[2022-10-17 13:53] LABS: C REACTIVE PROTEIN QUANTITATIV 3.6 MG/DL (<1.0)
[2022-10-17 13:54] LABS: RHEUMATOID FACTOR QUANT 7.8 IU/ML (<14)
== END ==
LOC: M LAB 12:33
PROVIDERS: ATTEND Internal Medicine
DX: M06.4 Inflammatory polyarthropathy (principal)

== ENCOUNTER → 2022-10-30 | Outpatient (REF) | payer OTHER ==
[2022-10-30 17:40] LABS: HEMOGLOBIN A1c 8.9 % (4.0-6.0)
[2022-10-30 17:59] LABS: ALBUMIN 3.5 G/DL (3.2-5.2); ALKALINE PHOSPHATASE 96 U/L (46-116); ALT/SGPT 23 U/L (7.0-40); AST/SGOT 14 U/L (<34); BILIRUBIN,TOTAL 0.3 MG/DL (0.3-1.2); BLOOD UREA NITROGEN 12 MG/DL (9-23); CALCIUM LEVEL 8.6 MG/DL (8.5-10.1); CARBON DIOXIDE LEVEL 25 MMOL/L (20-31); CHLORIDE LEVEL 106 MMOL/L (98-107); CHOLESTEROL LEVEL 118 MG/DL (<200); CHOLESTEROL RISK RATIO 4.29 (<5); CREATININE FOR GFR 0.55 MG/DL (0.55-1.30); GLOMERULAR FILTRATION RATE > 60.0 (>51); GLUCOSE, FASTING 163 MG/DL (60-100); HDL CHOLESTEROL 27.5 MG/DL (>40); LDL CHOLESTEROL 49.7 MG/DL (<100); NON-HDL-C 90.5 MG/DL; POTASSIUM SERUM 4.4 MMOL/L (3.5-5.1); SODIUM LEVEL 140 MMOL/L (136-145); TOTAL PROTEIN 6.5 G/DL (5.7-8.2); TRIGLYCERIDES LEVEL 204 MG/DL (<150)
[2022-10-30 18:02] LABS: THYROID STIMULATING HORMONE 3.813 uIU/ML (0.55-4.78)
== END ==
LOC: M LAB REF 17:04
PROVIDERS: ATTEND Family Medicine Addiction Medicine
DX: E11.9 Type 2 diabetes mellitus without complications (principal)

== ENCOUNTER → 2023-03-25 | Outpatient (REF) | payer OTHER, MEDICAID ==
[2023-03-25 14:13] LABS: CREATININE, URINE 99.5 MG/DL
[2023-03-25 14:19] LABS: ALBUMIN 3.5 G/DL (3.2-5.2); ALKALINE PHOSPHATASE 115 U/L (46-116); ALT/SGPT 23 U/L (7.0-40); AST/SGOT 10 U/L (<34); BILIRUBIN,TOTAL 0.5 MG/DL (0.3-1.2); BLOOD UREA NITROGEN 19 MG/DL (9-23); CARBON DIOXIDE LEVEL 29 MMOL/L (20-31); CHLORIDE LEVEL 102 MMOL/L (98-107); CHOLESTEROL LEVEL 125 MG/DL (<200); CHOLESTEROL RISK RATIO 4.09 (<5); CREATININE FOR GFR 0.53 MG/DL (0.55-1.30); GLOMERULAR FILTRATION RATE > 60.0 (>51); GLUCOSE, FASTING 301 MG/DL (60-100); HDL CHOLESTEROL 30.5 MG/DL (>40); HEMOGLOBIN A1c 8.9 % (4.0-6.0); LDL CHOLESTEROL 62.1 MG/DL (<100); NON-HDL-C 94.5 MG/DL; POTASSIUM SERUM 4.9 MMOL/L (3.5-5.1); SODIUM LEVEL 137 MMOL/L (136-145); THYROID STIMULATING HORMONE 3.657 uIU/ML (0.55-4.78); TOTAL PROTEIN 6.7 G/DL (5.7-8.2); TRIGLYCERIDES LEVEL 162 MG/DL (<150)
== END ==
LOC: M LAB REF 12:30
PROVIDERS: ATTEND Family Medicine Addiction Medicine
DX: E11.69 Type 2 diabetes mellitus with other specified complication (principal)

== ENCOUNTER → 2023-09-14 | Outpatient (REF) | payer OTHER, MEDICAID ==
[2023-09-14 18:35] LABS: ALBUMIN 3.6 G/DL (3.2-5.2); ALKALINE PHOSPHATASE 120 U/L (46-116); ALT/SGPT 36 U/L (7.0-40); AST/SGOT 18 U/L (<34); BILIRUBIN,TOTAL 0.6 MG/DL (0.3-1.2); BLOOD UREA NITROGEN 16 MG/DL (9-23); CALCIUM LEVEL 8.8 MG/DL (8.5-10.1); CARBON DIOXIDE LEVEL 29 MMOL/L (20-31); CHLORIDE LEVEL 101 MMOL/L (98-107); CHOLESTEROL LEVEL 131 MG/DL (<200); CHOLESTEROL RISK RATIO 4.62 (<5); CREATININE FOR GFR 0.53 MG/DL (0.55-1.30); GLOMERULAR FILTRATION RATE > 60.0 (>51); GLUCOSE, FASTING 339 MG/DL (60-100); HDL CHOLESTEROL 28.3 MG/DL (>40); LDL CHOLESTEROL 58.1 MG/DL (<100); NON-HDL-C 102.7 MG/DL; POTASSIUM SERUM 4.3 MMOL/L (3.5-5.1); SODIUM LEVEL 136 MMOL/L (136-145); TOTAL PROTEIN 6.9 G/DL (5.7-8.2); TRIGLYCERIDES LEVEL 223 MG/DL (<150)
[2023-09-14 18:37] LABS: THYROID STIMULATING HORMONE 3.028 uIU/ML (0.55-4.78)
[2023-09-14 19:11] LABS: HEMOGLOBIN A1c 10.2 % (4.0-6.0)
== END ==
LOC: M LAB REF 18:03
PROVIDERS: ATTEND Family Medicine Addiction Medicine
DX: E11.69 Type 2 diabetes mellitus with other specified complication (principal)

== ENCOUNTER → 2023-11-17 | Outpatient (REF) | LOC: M PLAIMG 10:47 | PROVIDERS: ATTEND Internal Medicine | DX: R52 Pain, unspecified (principal) ==

== ENCOUNTER → 2023-12-30 | Outpatient (REF) | payer OTHER, MEDICAID ==
[2023-12-30 14:00] LABS: ALBUMIN 3.7 G/DL (3.2-5.2); ALKALINE PHOSPHATASE 114 U/L (46-116); ALT/SGPT 23 U/L (7.0-40); AST/SGOT 11 U/L (<34); BILIRUBIN,TOTAL 0.5 MG/DL (0.3-1.2); BLOOD UREA NITROGEN 13 MG/DL (9-23); CALCIUM LEVEL 9.2 MG/DL (8.5-10.1); CARBON DIOXIDE LEVEL 28 MMOL/L (20-31); CHLORIDE LEVEL 108 MMOL/L (98-107); CHOLESTEROL LEVEL 111 MG/DL (<200); CHOLESTEROL RISK RATIO 4.23 (<5); CREATININE FOR GFR 0.55 MG/DL (0.55-1.30); GLOMERULAR FILTRATION RATE > 60.0 (>51); GLUCOSE, FASTING 153 MG/DL (60-100); HDL CHOLESTEROL 26.2 MG/DL (>40); LDL CHOLESTEROL 46.8 MG/DL (<100); NON-HDL-C 84.8 MG/DL; POTASSIUM SERUM 4.3 MMOL/L (3.5-5.1); SODIUM LEVEL 143 MMOL/L (136-145); TOTAL PROTEIN 6.8 G/DL (5.7-8.2); TRIGLYCERIDES LEVEL 190 MG/DL (<150)
[2023-12-30 14:04] LABS: THYROID STIMULATING HORMONE 3.027 uIU/ML (0.55-4.78)
[2023-12-30 14:29] LABS: HEMOGLOBIN A1c 7.2 % (4.0-6.0)
== END ==
LOC: M LAB REF 12:53
PROVIDERS: ATTEND Family Medicine Addiction Medicine
DX: E11.69 Type 2 diabetes mellitus with other specified complication (principal)

== ENCOUNTER → 2024-09-28 | Outpatient (REF) | payer OTHER, MEDICAID ==
[~2024-09-28] MED LIST changes: +ISOS-18 PO; -ISOS30TAB PO
[2024-09-28 13:53] LABS: CREATININE, URINE 54.8 MG/DL; MALB URINE SIEMENS < 3.0 MG/L
[2024-09-28 14:51] LABS: ALBUMIN 3.7 G/DL (3.2-5.2); ALKALINE PHOSPHATASE 121 U/L (35-104); ALT/SGPT 34 U/L (7.0-40); AST/SGOT 16 U/L (<34); BILIRUBIN,TOTAL 0.5 MG/DL (0.3-1.2); BLOOD UREA NITROGEN 14 MG/DL (9-23); CALCIUM LEVEL 9.3 MG/DL (8.5-10.1); CARBON DIOXIDE LEVEL 28 MMOL/L (20-31); CHLORIDE LEVEL 102 MMOL/L (98-107); CHOLESTEROL LEVEL 136 MG/DL (<200); CHOLESTEROL RISK RATIO 4.83 (<5); CREATININE FOR GFR 0.52 MG/DL (0.55-1.30); GLOMERULAR FILTRATION RATE > 90.0 (>51); GLUCOSE, FASTING 328 MG/DL (60-100); HDL CHOLESTEROL 28.1 MG/DL (>40); LDL CHOLESTEROL 57.9 MG/DL (<100); NON-HDL-C 107.9 MG/DL; POTASSIUM SERUM 4.3 MMOL/L (3.5-5.1); SODIUM LEVEL 139 MMOL/L (136-145); TRIGLYCERIDES LEVEL 250 MG/DL (<150)
[2024-09-28 14:53] LABS: THYROID STIMULATING HORMONE 4.674 uIU/ML (0.55-4.78)
== END ==
LOC: M LAB REF 11:56
PROVIDERS: ATTEND Student in an Organized Health Care Education/Training Program
DX: E11.9 Type 2 diabetes mellitus without complications (principal); E66.01 Morbid (severe) obesity due to excess calories; E78.5 Hyperlipidemia, unspecified

== ENCOUNTER → 2025-03-31 | Outpatient (REF) | payer OTHER, MEDICAID ==
[2025-03-31 14:39] LABS: BASO # 0.1 10^3/uL (0.0-0.2); BASO % 1.0 % (0.0-1.0); EOS # 0.0 10^3/uL (0.0-0.5); EOS % 0.0 % (0.0-3.0); LYMPH # 2.5 10^3/uL (1.5-5.0); LYMPH % 24.1 % (24.0-44.0); MONO # 0.5 10^3/uL (0.0-0.8); MONO % 5.1 % (2.0-8.0); NEUTROPHILS # 7.2 10^3/uL (1.5-8.5); NEUTROPHILS % 69.5 % (36.0-66.0); PLATELET COUNT, AUTOMATED 210 10^3/uL (150-450)
[2025-03-31 14:43] LABS: ALT/SGPT 28 U/L (7.0-40); AST/SGOT 16 U/L (<34); CALCIUM LEVEL 8.7 MG/DL (8.5-10.1); CARBON DIOXIDE LEVEL 29 MMOL/L (20-31); CHLORIDE LEVEL 102 MMOL/L (98-107); CREATININE FOR GFR 0.60 MG/DL (0.55-1.30); GLOMERULAR FILTRATION RATE > 90.0 (>51); IRON (FE) 82 UG/DL (50-170); POTASSIUM SERUM 4.0 MMOL/L (3.5-5.1); SODIUM LEVEL 140 MMOL/L (136-145)
[2025-03-31 14:47] LABS: PROGESTERONE < 0.21 NG/ML
[2025-03-31 14:48] LABS: LUTEINIZING HORMONE 5.3 mIU/ML
[2025-03-31 14:49] LABS: ESTRADIOL 34.0 PG/ML; FREE T4 1.20 NG/DL (0.89-1.76)
== END ==
LOC: M LAB REF 12:24
PROVIDERS: ATTEND Student in an Organized Health Care Education/Training Program
DX: N95.1 Menopausal and female climacteric states (principal); R19.7 Diarrhea, unspecified

== ENCOUNTER → 2025-04-20 | Outpatient (CLI) | payer OTHER | LOC: M RAD 08:10 | PROVIDERS: ATTEND Student in an Organized Health Care Education/Training Program | DX: K80.80 Other cholelithiasis without obstruction (principal) ==

== ENCOUNTER → 2025-04-28 | Outpatient (CLI) | payer OTHER | LOC: M CARPUL 11:23 | PROVIDERS: ATTEND Registered Nurse | DX: I35.9 Nonrheumatic aortic valve disorder, unspecified (principal) ==